=== PATIENT | female | born 1965 | race Caucasian/White ===

== ENCOUNTER 2018-06-02 11:32 | Emergency (ER) | payer MEDICAID ==
[~2018-06-02] VITALS: Ht 157.5 cm; Wt 101.3 kg
[2018-06-02 11:44] VITALS: BP 125/66
[2018-06-02] MEDS ORDERED: ketorolac trometh inj. 60 MG/2 ML VIAL IM ONE (12:20)
[2018-06-02] MEDS ORDERED: ACET-3067 PO (12:55)
[2018-06-02] MEDS ORDERED: CYCL-1 PO (12:55)
== END 2018-06-02 13:18 | disposition home or self-care (01) ==
LOC: ER 11:44
DX: M25.551 Pain in right hip (principal); M79.651 Pain in right thigh; M25.561 Pain in right knee; M54.9 Dorsalgia, unspecified; M54.31 Sciatica, right side; E78.00 Pure hypercholesterolemia, unspecified; I10 Essential (primary) hypertension; E11.9 Type 2 diabetes mellitus without complications; Z79.899 Other long term (current) drug therapy
CPT/HCPCS: 73502; 73564; 96372; 99283; J1885

== ENCOUNTER 2018-12-20 11:59 | Day surgery (SDC) | payer MEDICAID ==
[2018-12-12 15:50] LABS: BASOPHILS # (AUTO) 0.1 X10'3 (0-0.2); BASOPHILS % (AUTO) 0.7 % (0-1); EOSINOPHILS # (AUTO) 0.2 X10'3 (0-0.9); EOSINOPHILS % (AUTO) 1.7 % (0-6); LYMPHOCYTES # (AUTO) 3.1 X10'3 (1.1-4.8); LYMPHOCYTES % (AUTO) 26.3 % (21-51); MEAN CORPUSCULAR HEMOGLOBIN 30.3 PG (27.0-31.0); MEAN CORPUSCULAR HGB CONC 33.3 g/dL (33.0-36.5); MEAN CORPUSCULAR VOLUME 90.9 FL (78-98); MEAN PLATELET VOLUME 9.1 FL (7.4-10.4); MONOCYTES # (AUTO) 0.8 X10'3 (0-0.9); MONOCYTES % (AUTO) 6.9 % (2-12); NEUTROPHILS # (AUTO) 7.6 X10'3 (1.8-7.7); NEUTROPHILS % (AUTO) 64.4 % (42-75); PRE OP HEMATOCRIT 42.4 % (35.0-45.0); PRE OP HEMOGLOBIN 14.1 g/dL (12.0-16.0); PRE OP PLATELET COUNT 263 X10'3 (140-440); RED BLOOD COUNT 4.67 X10'6 (4.20-5.60); RED CELL DISTRIBUTION WIDTH 13.3 % (11.5-14.5)
[2018-12-12 16:07] LABS: ALBUMIN 3.7 G/DL (3.4-5.0); ALBUMIN/GLOBULIN RATIO 0.9 (1.1-1.5); ALKALINE PHOSPHATASE 134 IU/L (46-116); BLOOD UREA NITROGEN 13 MG/DL (7-18); BUN/CREATININE RATIO 24.5 (6.6-38.0); CHLORIDE 101 MMOL/L (99-107); CREATININE 0.53 MG/DL (0.40-0.90); PRE OP ALT 52 U/L (30-65); PRE OP ANION GAP 6 (8-16); PRE OP AST 26 U/L (10-37); PRE OP BILIRUB, TOTAL 0.4 MG/DL (0.0-1.0); PRE OP GLUCOSE 119 MG/DL (70-104); PRE OP SODIUM 137 MMOL/L (135-145); TOTAL PROTEIN 7.7 G/DL (6.4-8.2); eGFR > 90 ML/MIN
[2018-12-20] VITALS (10 sets, daily range): BP systolic 112–158; BP diastolic 64–76
[~2018-12-20] VITALS: Ht 157.5 cm; Wt 102.1 kg
[~2018-12-20 11:59] MED LIST: ALBU6.7H9 INH; BUPIVAcaine/PF 2.5 mg/ml (0.25%) 30ml vial ONE; LISI10TA4 PO; METF750T46 PO; MULT1TAB74 PO; VANCOMYCIN INJ 1000 MG in NORMAL SALINE 250ml IV.SOLN IV ONE; cefazolin/dext.iso 2gm/100 ML IV ONE; famotidine 20mg tablet PO ONE; ringers solution, lacted 1,000 ML IV SCH; triamcinolone acetonide 40mg/ml inj ONE
[2018-12-20] MEDS ORDERED: fentaNYL/PF 50MCG/1 ML 2ML syringe ONE (12:52)
[2018-12-20] MEDS ORDERED: midazolam 2 mg/2 ml injection ONE (12:53)
[2018-12-20] MEDS ORDERED: ringers solution, lacted 1,000 ML IV SCH (12:59)
[2018-12-20] MEDS ORDERED: morphine 4 MG/ML inj SYRINge IV PRN ×2 (13:00)
[2018-12-20] MEDS ORDERED: labetalol 20mg/4ml (5mg/ml) syringe IV PRN (13:00)
[2018-12-20] MEDS ORDERED: ondansetron/PF 4mg/2ml inj IV PRN (13:00)
[2018-12-20] MEDS ORDERED: fentaNYL/PF 50MCG/1 ML 2ML syringe IV PRN ×2 (13:00)
[2018-12-20] MEDS ORDERED: hydrALAZINE 20mg/ml inj. IV PRN (13:00)
[2018-12-20] MEDS ORDERED: MIDAZolam 5mg/5ml vial ONE (13:36)
--- NOTE | 2018-12-20 14:10 | NUR ---
Received from OR via bed, accompanied by Anesthesiologist. Report received. Initial physical assessment done and recorded.
--- NOTE | 2018-12-20 15:45 | NUR ---
Discharged home in good condition. No complaints of pain during post op period, no pain meds given no complaints Discharge criteria met, discharge instructions given, demonstrates verbal understanding.
== END 2018-12-20 15:45 | disposition home or self-care (01) ==
LOC: PAS 11:59
PROVIDERS: ATTEND Orthopaedic Surgery
DX: S83.231A Complex tear of medial meniscus, current injury, right knee, initial encounter (principal); S83.281A Other tear of lateral meniscus, current injury, right knee, initial encounter; M22.8X1 Other disorders of patella, right knee; M22.41 Chondromalacia patellae, right knee; I10 Essential (primary) hypertension; E11.51 Type 2 diabetes mellitus with diabetic peripheral angiopathy without gangrene; E66.01 Morbid (severe) obesity due to excess calories; M17.0 Bilateral primary osteoarthritis of knee; E78.5 Hyperlipidemia, unspecified; X58.XXXA Exposure to other specified factors, initial encounter; Y93.89 Activity, other specified; Y92.89 Other specified places as the place of occurrence of the external cause; Y99.8 Other external cause status; Z79.899 Other long term (current) drug therapy; Z68.39 Body mass index [BMI] 39.0-39.9, adult
CPT/HCPCS: 29873; 29879; 29880; 36415; 80053; 82948; 85025; 93005; J2250; J3010; J3301; J3370; J3490; A4215; A6250; A6449; A7000; J7120

== ENCOUNTER 2023-10-31 08:10 | Outpatient (CLI) | payer MEDICAID ==
[~2023-10-31 08:10] MED LIST changes: +ALBU6.7H14 INH; -ALBU6.7H9 INH; -BUPIVAcaine/PF 2.5 mg/ml (0.25%) 30ml vial ONE; +LISI10TA27 PO; -LISI10TA4 PO; +MULT-620 PO; -MULT1TAB74 PO; -VANCOMYCIN INJ 1000 MG in NORMAL SALINE 250ml IV.SOLN IV ONE; -cefazolin/dext.iso 2gm/100 ML IV ONE; -famotidine 20mg tablet PO ONE; -ringers solution, lacted 1,000 ML IV SCH; -triamcinolone acetonide 40mg/ml inj ONE
== END 2023-10-31 23:59 | disposition home or self-care (01) ==
LOC: RAD 08:10
PROVIDERS: ATTEND Family Medicine
DX: R74.01 Elevation of levels of liver transaminase levels (principal); Z90.49 Acquired absence of other specified parts of digestive tract
CPT/HCPCS: 76700